=== PATIENT | male | born 1955 | race Hispanic/Latino ===

== ENCOUNTER 2018-11-09 09:09 | Emergency (ER) | payer OTHER ==
[2018-11-09 10:09] LABS: BASOPHILS % (AUTO) 0.4 % (0.0-5.0); EOSINOPHILS % (AUTO) 0.7 % (0.0-8.0); HEMATOCRIT 40.6 % (42-54); LYMPHOCYTES % (AUTO) 14.6 % (21.0-51.0); MEAN CORPUSCULAR HEMOGLOBIN 28.6 pg (27.0-33.0); MEAN CORPUSCULAR HGB CONC 33.3 g/dL (32.0-36.0); MEAN CORPUSCULAR VOLUME 85.9 fL (79-99); MONOCYTES % (AUTO) 5.2 % (3.0-13.0); NEUTROPHILS % (AUTO) 79.1 % (40.0-77.0); PLATELET COUNT (AUTO) 240 K/uL (130-400); RED BLOOD CELL COUNT(AUTO) 4.73 MIL/uL (4.50-6.20); RED CELL DISTRIBUTION WIDTH 14.8 % (11.0-15.5); WHITE BLOOD COUNT (AUTO) 8.1 K/uL (4.8-10.8)
[2018-11-09 10:19] LABS: CARBON DIOXIDE 28 mmol/L (21-32); CHLORIDE 107 mmol/L (101-111); CREATININE 1.2 mg/dL (0.5-1.5); GLOMERULAR FILTR. RATE CALC 65 mL/min (>60); GLUCOSE,RANDOM 108 mg/dL (70-105); POTASSIUM 3.9 mmol/L (3.5-5.1); SODIUM SERUM 141 mmol/L (136-145); UREA NITROGEN, BLOOD 17 mg/dL (7-18)
[2018-11-09 10:21] LABS: INR 0.97 (0.85-1.15); PARTIAL THROMBOPLASTIN TIME 22.7 SEC (26.3-35.5); PROTHROMBIN TIME 10.2 SEC (9.6-11.6)
[2018-11-09 10:23] LABS: ALANINE AMINOTRANSFERASE 29 U/L (12-78); ALBUMIN 3.7 g/dL (3.5-5.0); ALCOHOL, BLOOD < 3 mg/dL (0-10); AMYLASE 65 U/L (25-115); ASPARTATE AMINOTRANSFERASE 19 U/L (10-37); BILIRUBIN,TOTAL 0.4 mg/dL (0.2-1.0); CREATINE KINASE, TOTAL 107 U/L (21-232); LIPASE 153 U/L (114-286); TOTAL PROTEIN, SERUM 6.7 g/dL (6.0-8.3)
[2018-11-09 10:24] LABS: APPEARANCE,URINE Clear (CLEAR); BILIRUBIN,URINE Negative (NEGATIVE); COLOR,URINE Yellow (YELLOW); GLUCOSE, URINE (UA) Negative (NEGATIVE); KETONES,URINE Negative (NEGATIVE); LEUKOCYTE ESTERASE ,URINE Negative (NEGATIVE); NITRATE,URINE Negative (NEGATIVE); OCCULT BLOOD,URINE Negative (NEGATIVE); PH,URINE 7.5 (5.0-8.0); PROTEIN,URINE Negative (NEGATIVE)
[2018-11-09] MEDS ORDERED: CYCLOBENZAPRINE HCL 10 MG TABLET ONE (12:14)
[2018-11-09] MEDS ORDERED: TRAMADOL HCL 50 MG TABLET ONE (12:14)
== END 2018-11-09 12:57 | disposition home or self-care (01) ==
LOC: EDH 09:09
DX: M54.2 Cervicalgia (principal); M54.6 Pain in thoracic spine; R79.1 Abnormal coagulation profile; E78.00 Pure hypercholesterolemia, unspecified; V49.49XA Driver injured in collision with other motor vehicles in traffic accident, initial encounter; Y93.89 Activity, other specified; Y92.89 Other specified places as the place of occurrence of the external cause; Y99.8 Other external cause status
CPT/HCPCS: 36415; 71045; 72040; 72072; 72125; 80053; 81003; 82150; 82550; 83690; 84484; 85025; 85610; 85730; 93005; 99285; G0480

== ENCOUNTER 2025-03-29 20:03 | Emergency (ER) | payer MEDICARE ==
[~2025-03-29] VITALS: Ht 175.3 cm; Wt 97.1 kg
--- NOTE | 2025-03-29 20:57 | ERN ---
ED Note History of Present Illness Stated Complaint: C/O CONSTIPATION X 15 DAYS Chief Complaint: Constipation Time Seen by MD: 20:06 Time Seen by Midlevel: 20:06 Dictation: The patient is a 70-year-old male with no significant past medical history who presents to the emergency department with complaints of constipation onset March 11. Patient reports he occasionally has bowel movements but they really small and has not been able to feel any relief. Reports last bowel movement was today. Reports he took magnesium sulfate today with a little improvement. Patient denies any nausea or vomiting. Denies any fevers. Reports abdominal bloating. Allergies: Coded Allergies: No Known Drug Allergies (Unverified Allergy, Unknown, 11/09/18) Home Meds Active Scripts Peg 3350/Na Sulf,Bicarb,Cl/KCl (Golytely/Colyte Soln) 236-22.74G Soln, 0 PO AD, #4000 ML 0 Refills Take according to instructions on printed sheet Prov:NATALIE CELIS TEACHER SELECTION SPECIALIST 03/29/25 Simethicone (Simethicone) 80 Mg Tab.chew, 1 TAB PO TID for gas for 6 Days, #20 TAB 0 Refills Prov:NATALIE CELIS TEACHER SELECTION SPECIALIST 03/29/25 Past Medical History Past Medical History: No Pertinent History Surgical History: Other RN Note Reviewed/Agreed w/PFSH: Yes Review of System Dictation Constitutional: Negative for fever,chills, and weight loss Eyes: Negative for injury, pain,redness, and discharge ENT: Negative for injury,pain or swelling Cardiovascular: Negative for chest pain, palpitations, and edema Respiratory: Negative for shortness of breath, cough, and wheezing, Abdomen/GI: Negative for nausea, vomiting, diarrhea, positive for abdominal pain, constipation Back: Negative for injury and pain : Negative for injury, bleeding and discharge MS/Extremity: Negative for injury and deformity Skin: Negative for rash, and discoloration Neuro: Negative for headache, weakness, numbness, tingling, and seizure Psych: Negative for suicide ideation, homicidal ideation, and hallucinations Initial Vital Sign VS Vital Signs Date Time Temp Pulse Resp B/P (MAP) Pulse Ox O2 Delivery O2 Flow Rate FiO2 03/29/25 20:05 99.0 101 18 145/73 99 Room Air 03/29/25 21:07 0 21 Physical Exam Dictation Vital Signs reviewed General Appearance: Alert, oriented x 3, no acute distress, well developed, nourished. Head and Face: non-traumatic. Eyes: PERRL, pink conjunctivas, eyelid no trauma, anterior chamber with arcus senilis. Ears: Pinnas intact and no signs of trauma or erythema ear canals clear and no discharge TM no erythema Nose: No discharge, no bleeding. Oropharynx: Mouth normal, tongue pink. pharynx clear,no erythema, tonsils no exudates, no abscesses noted, mucous membrane moist Neck: Supple, non-tender, no thyromegaly, no masses, no JVD, no bruits Breast:Deferred Chest:No tenderness, no crepitus, no paradoxical movement, no retractions Lungs:Clear, well-ventilated, symmetric, no rales, no wheezing, no rhonchi, no stridor, good breath sounds bilaterally Heart: Regular rate, regular rhythm, no murmur, no gallops Vascular: no peripheral edema, Abdomen: Soft, positive bowel sounds, nondistended, no guarding, nontender, no rebound, no masses no hepatomegaly, no splenomegaly, no Carballo's sign, no hernias. Rectal: Deferred Genital: Deferred Neurological: Normal speech, motor function intact, sensory function intact Musculoskeletal: Neck nontender, full range of motion, back nontender, full range of motion, Extremities: nontender, full range of motion Skin: Color pink, dry, no turgor, no rash, no lacerations, no abrasions, no contusions. Lymphatic: Deferred Results (Laboratory/Radiology) Laboratory/Radiology Laboratory Tests Test 03/29/25 20:35 White Blood Count 5.9 K/uL (4.8-10.8) Red Blood Count 4.20 MIL/uL (4.50-6.20) L Hemoglobin 11.9 g/dL (14.0-18.0) L Hematocrit 37.0 % (42-54) L Mean Corpuscular Volume 88.1 fL (79-99) Mean Corpuscular Hemoglobin 28.3 pg (27.0-33.0) Mean Corpuscular Hemoglobin Concent 32.2 g/dL (32.0-36.0) Red Cell Distribution Width 13.5 % (11.0-15.5) Platelet Count 285 K/uL (130-400) Mean Platelet Volume 9.7 fL (7.5-10.5) Immature Granulocyte % (Auto) 0.2 % (0-1) Neutrophils (%) (Auto) 72.9 % (40.0-77.0) Lymphocytes (%) (Auto) 18.1 % (21.0-51.0) L Monocytes (%) (Auto) 6.9 % (3.0-13.0) Eosinophils (%) (Auto) 1.4 % (0.0-8.0) Basophils (%) (Auto) 0.5 % (0.0-5.0) Neutrophils # (Auto) 4.3 K/uL (1.8-7.7) Lymphocytes # (Auto) 1.1 K/uL (1.0-4.8) Monocytes # (Auto) 0.4 K/uL (0.1-1.0) Eosinophils # (Auto) 0.08 K/uL (0.00-0.70) Basophils # (Auto) 0.03 K/uL (0.00-0.20) Absolute Immature Granulocyte (auto 0.01 K/uL (0-1) Nucleated Red Blood Cells 0.0 % (0.0-0.19) Sodium Level 136 mmol/L (136-145) Potassium Level 4.2 mmol/L (3.5-5.1) Chloride Level 102 mmol/L (101-111) Carbon Dioxide Level 26 mmol/L (21-32) Blood Urea Nitrogen 19 mg/dL (7-18) H Creatinine 1.2 mg/dL (0.5-1.3) Glomerular Filtration Rate Calc 65 mL/min (>90) Random Glucose 109 mg/dL (70-105) H Total Calcium 8.6 mg/dL (8.5-10.1) ORDERING PHYSICIAN: NATALIE CELIS PROCEDURE: ABD 1VW - ABD 1VW EXAM: CR Abdomen, 2 views CLINICAL HISTORY: constipation COMPARISON: None provided. FINDINGS: Mild cases distention of the transverse colon.. No abnormal air-fluid level. Nonobstructed nonspecific bowel gas pattern. No free air is evident. No abnormal calcification. No aggressive appearing osseous lesion. IMPRESSION: No acute process. Mild cases distention of the transverse colon.. No abnormal air-fluid level. /[facility] Reviewed?: Yes ED Course ED Course Orders Procedure Category Date Status Time Cbc With Differential LAB 03/29/25 Complete 20:24 Basic Metabolic Panel LAB 03/29/25 Complete 20:24 Abd 1vw RAD 03/29/25 Resulted 20:24 Lactulose 20 Gm/30 Ml PHA 03/29/25 Complete Udcup (Constulose 21:30 Current Medications Medications (Trade) Dose Ordered Sig/Emile Route PRN Reason Start Time Stop Time Status Last Admin Dose Admin Lactulose (Constulose 20gm/ 30ml Udcup) 20 gm ONCE ONCE PO 03/29/25 21:30 03/29/25 21:45 DC 03/29/25 22:01 Vital Signs Date Time Temp Pulse Resp B/P (MAP) Pulse Ox O2 Delivery O2 Flow Rate FiO2 03/29/25 21:07 98.8 88 18 124/78 99 Room Air* 0 21 03/29/25 20:05 99.0 101 18 145/73 99 Room Air Medical Decision Making MDM The patient is a 70-year-old male with no significant past medical history who presents to the emergency department with complaints of constipation onset March 11. Patient reports he occasionally has bowel movements but they really small and has not been able to feel any relief. Reports last bowel movement was today. Reports he took magnesium sulfate today with a little improvement. Patient denies any nausea or vomiting. Denies any fevers. Reports abdominal bloating. CBC showed no leukocytosis, mild normocytic anemia, chemistry showed creatinine of 1.2, no electrolyte imbalance. Abdominal x-ray showed Nonobstructed bowel gas pattern. On physical exam patient is in no acute distress, nontoxic appearance, abdomen is soft and nontender to palpation. Patient will be discharged to follow up with PCP. Differential diagnosis: Constipation, electrolyte imbalance, dehydration, bowel obstruction Need for hospitalization: Patient does not meet criteria for hospitalization. There are no social concerns with this patient. DX & DISP Disposition: Discharge Departure Impression: Primary Impression: Constipation Condition: Stable Scripts Peg 3350/Na Sulf,Bicarb,Cl/KCl (Golytely/Colyte Soln) 236-22.74G Soln 0 PO AD, #4000 ML 0 Refills Take according to instructions on printed sheet Prov: NATALIE CELIS TEACHER SELECTION SPECIALIST 03/29/25 Simethicone (Simethicone) 80 Mg Tab.chew 1 TAB PO TID for gas for 6 Days, #20 TAB 0 Refills Prov: NATALIE CELIS NANDINI 03/29/25 Additional Instructions: Your labs were unremarkable. You will be prescribed medications for abdominal gas and constipation. Continue fluid intake at home. Continue high-fiber diet. If anything worsens please return to ER. FOLLOW-UP WITH PRIMARY CARE PROVIDER IN 1 TO 2 DAYS. TAKE MEDICATIONS DIRECTED HERE IN THE EMERGENCY ROOM. OKAY TO CONTINUE HOME MEDICATIONS UNLESS OTHERWISE DISCUSSED DURING YOUR VISIT IN THE EMERGENCY ROOM TODAY. RETURN TO YOUR NEAREST EMERGENCY ROOM IF SYMPTOMS WORSEN OR IF THERE IS NO IMPROVEMENT. CALL 911 IF YOU NEED IMMEDIATE ASSISTANCE. TAKE TYLENOL [id number] NEEDED AND IF NO CONTRAINDICATIONS ARE PRESENT. INCREASE ORAL HYDRATION. A WOUND CULTURE OR URINE CULTURE WAS ORDERED HERE IN THE EMERGENCY ROOM DEPARTMENT PLEASE FOLLOW-UP WITH PRIMARY CARE PROVIDER AND ADVISE THEM TO GET REPEAT PORTS FROM OUR FACILITY. IF YOU HAD ANY CARLOS WRAP/SPLINTS THAT WERE APPLIED HERE, PLEASE DO NOT REMOVE THEM UNTIL YOU SEE YOUR PRIMARY CARE OR SPECIALTY. Referrals: SELF,REFERRAL (PCP) Time of Disposition: 22:29 I have reviewed the case, and I agree with, Diagnosis and Plan MARCE CELISKENDRA DELATORRE Mar 29, 2025 20:57
[2025-03-29 21:00] LABS: IMMATURE GRANULOCYTE ABSOLUTE 0.01 K/uL (0-1); NUCLEATED RED BLOOD CELLS 0.0 % (0.0-0.19); PLATELET COUNT (AUTO) 285 K/uL (130-400); RED BLOOD CELL COUNT(AUTO) 4.20 MIL/uL (4.50-6.20); RED CELL DISTRIBUTION WIDTH 13.5 % (11.0-15.5); WHITE BLOOD COUNT (AUTO) 5.9 K/uL (4.8-10.8)
[2025-03-29 21:07] LABS: CREATININE 1.2 mg/dL (0.5-1.3); GLOMERULAR FILTR. RATE CALC 65.0 mL/min (>90); GLUCOSE,RANDOM 109.0 mg/dL (70-105); SODIUM SERUM 136.0 mmol/L (136-145); UREA NITROGEN, BLOOD 19.0 mg/dL (7-18)
--- NOTE | 2025-03-29 21:48 | HMCIMG ---
EXAM: CR Abdomen, 2 views CLINICAL HISTORY: constipation COMPARISON: None provided. FINDINGS: Mild cases distention of the transverse colon.. No abnormal air-fluid level. Nonobstructed nonspecific bowel gas pattern. No free air is evident. No abnormal calcification. No aggressive appearing osseous lesion. IMPRESSION: No acute process. Mild cases distention of the transverse colon.. No abnormal air-fluid level. /[place]
[2025-03-29] MEDS: LACTULOSE 20 GM/30 ML UDCUP PO ONE (22:01)
[2025-03-29] MEDS ORDERED: GOLY4L PO (22:34)
[2025-03-29] MEDS ORDERED: SIME80TA12 PO (22:34)
[2025-03-29 23:15] VITALS: BP 123/66; PULSE 85; RESP 20; TEMP 98.8; O2SAT 100
== END 2025-03-29 23:02 | disposition home or self-care (01) ==
LOC: EDH 20:03
DX: K59.00 Constipation, unspecified (principal); Z79.899 Other long term (current) drug therapy; Z98.890 Other specified postprocedural states
CPT/HCPCS: 36415; 74018; 80048; 85025; 99284